=== PATIENT | male | born 1985 | race Caucasian/White ===

== ENCOUNTER → 2020-01-11 | Outpatient (CLI) | payer OTHER ==
[2020-01-11 13:42] LABS: SPERM MORPHOLOGY SENT TO REFERENC LAB
[2020-01-11 15:22] LABS: SPERM CONCENTRATION 56.3 X10^6/mL (>12.0); TOTAL SPERM COUNT 197.1 X10^6 (>33.0)
[2020-01-11 15:24] LABS: SPERM PROGRESSION 3
== END ==
LOC: LAB 13:38
PROVIDERS: ATTEND Obstetrics & Gynecology
DX: N46.9 Male infertility, unspecified (principal)
CPT/HCPCS: 89320